=== PATIENT | female | born 1990 | race African-American/Black ===

== ENCOUNTER 2016-06-05 21:55 | Emergency (ER) | payer MEDICAID ==
[~2016-06-05 21:55] MED LIST: CLIN1CAP6 PO; PERC5TAB12 PO
[2016-06-05 22:00] VITALS: BP 123/56; PULSE 86; RESP 16; TEMP 98.1; O2SAT 99
[2016-06-05] MEDS ORDERED: PROM25TA5 PO (23:23)
--- NOTE | 2016-06-05 23:24 | PD ---
HPI Chief Complaint Patient complains of abdominal pain Date Seen: Jun 05, 2016 Travel History International Travel<30 Days: No Contact w/Intl Traveler<30Days: No Known Affected Area: No History of Present Illness HPI This patient is 25-year-old black female at approximately 20 weeks' gestation with no care presents with crampy pains, she denies vaginal bleeding or leakage of fluid. heart tones in the 130s Para: 1 : 2 History Obstetric History Obstetric History One vaginal delivery Social History Alcohol Use: No Tobacco Use: No Substance Abuse: No Allergies-Medications (Allergen,Severity, Reaction): Coded Allergies: *MDRO Multi-Drug Resistant Organism (Verified Adverse Reaction, Unknown, 02/21/16) ESBL+E.Coli (urine)-09/2015 Home Meds Reported Medications Clindamycin 300 Mg [id number] Mg PO Q6H Ref 0 02/20/16 Oxycodone-Acetaminophen (Percocet)5-325 mg Tab1 Tab PO Q6H PRN (PAIN) Ref 0 02/20/16 Review of Systems General / Constitutional: No: Fever, Weight Gain, Chills, Other Eyes: No: Diploplia, Blurred Vision, Visual changes, Pain, Photophobia HENT: No: Headaches, Vertigo, Lightheadedness Cardiovascular: No: Irregular Rhythm, Chest Pain or Discomfort, Palpitations, Tachycardia, Syncope, Varicosities, Edema, Cyanosis Respiratory: No: Cough, Short of Breath, Other Gastrointestinal: Abdominal Pain, No: Nausea, Vomiting, Diarrhea Genitourinary: No: Decreased Urinary Output, Oliguria Musculoskeletal: No: Limited ROM, Weakness, Cramping, Edema, Pain Skin: No Rash, No Itching, No Dryness, No Lumps, No Change in Pigmentation, No Change in Nails, No Alopecia, No Lesions Neurologic: No: Weakness, Dizziness, Syncope, Focal Abnormalities, Coordination Problem, Headache, Slurred Speech, Seizures Psychiatric: No: Depression, Suicidal Ideations, Homicidal Ideation Endocrine: No: Heat Intolerance, Cold Intolerance, Polydipsia, Polyuria, Other Physical Exam Vital Signs Date Time Temp Pulse Resp B/P Pulse Ox O2 Delivery O2 Flow Rate FiO2 06/05/16 22:00 98.1 86 16 123/56 99 Room Air Narrative GENERAL: Well-nourished, well-developed patient. SKIN: Warm and dry. HEAD: Normocephalic and atraumatic. EYES: No scleral icterus. No injection or drainage. ENT: No nasal drainage noted. Mucous membranes pink. Airway patent. NECK: Supple, trachea midline. No JVD. CARDIOVASCULAR: Regular rate and rhythm without murmurs, gallops, or rubs. RESPIRATORY: Breath sounds equal bilaterally. No accessory muscle use. BREASTS: Bilateral exam showed no masses , no retractions, no nipple discharge. ABDOMEN/GI: Abdomen soft, non-tender, bowel sounds present, no rebound, no guarding Gravid to [20-] weeks size Fundal Height: [-at umbilicus] GENITOURINARY: External Genitalia: intact and normal in appearance BUS glands: [-] Cervix: [-] Dilatation: [Closed-] Effacement: [-] Thick Station: [-3] Presentation: [Breech by ultrasound-] Membranes: [intact ] Uterine Contractions: [-none] FHT's: 130s EXTREMITIES: No cyanosis or edema. BACK: Nontender without obvious deformity. No CVA tenderness. NEUROLOGICAL: Awake and alert. Motor and sensory grossly within normal limits. Five out of 5 muscle strength in all muscle groups. Normal speech. Data Data Orders Ob Poc Ultrasound (06/05/16 ) Vital Signs (Adult) .ON ADMISSION (06/05/16 22:48) ^ Labor Status (06/05/16 22:48) Urinalysis - C+S If Indicated (06/05/16 22:48) Ob/Psych Drug Screen, Urine (06/05/16 22:48) Screen (06/05/16 22:50) Labs Ultrasound done at bedside shows in active fetus 19 weeks 3 days,breech, normal cardiac motion noted, normal anatomy scan, posterior placenta, normal amniotic fluid volume. EDC by this ultrasound 10/27/16 MDM Interpretation(s) Patient is a 25-year-old black female with at approximately 20 weeks' gestation with no care tonight ultrasound puts her at 19 weeks 3 days with an EDC of 10/27/16 which should be used to establish her gestational criteria, ultrasound findings documented, laboratory pending at time of dictation but will treat according the urinalysis results ., lab work being drawn just in case because she plans to deliver here Plan The patient to use Tylenol when necessary abdominal pain , prescription for oral Phenergan to use at home for nausea which she says started today, increase oral fluids for hydration,, bedrest heating pad or hot bath for relief of symptoms, patient was also encouraged to begin surgery for care. because she plans to deliver here and would be able to get the second ultrasound in 4 to 6 weeks to see the sex of baby and that is what she is really interested in Diagnosis Diagnosis: Primary Impression: Abdominal pain during in second trimester Additional Impression: No care in current Disposition: 01 DISCHARGE HOME Condition: Stable Scripts Promethazine (Phenergan)25 Mg Tab25 Mg PO Q6H PRN (Nausea/Vomiting) #28 TAB Ref 0 Prov:Nilson Reyes II, MD 06/05/16 Nilson Reyes II, MD Jun 05, 2016 23:24
[2016-06-05 23:40] LABS: BACTERIA, URINE RARE /hpf; BLOOD, URINE NEG (NEG); GLUCOSE,URINE NEG (NEG); KETONE, URINE NEG (NEG); NITRITE,URINE NEG (NEG); RENAL EPITHELIAL CELLS 1 /hpf; SQUAMOUS EPITHELIAL CELL URINE 1 /hpf (0-5); URINE COLOR LIGHT-YELLOW (YELLW/STRAW)
[2016-06-05 23:45] LABS: AMPHETAMINE, URINE NEG (NEG); BARBITURATES, URINE NEG (NEG); COCAINE, URINE NEG (NEG)
[2016-06-05 23:46] LABS: COMMENT (UR) CULTURE INDICATED; CULTURE IF INDICATED CULTURE INDICATED
[2016-06-09 09:08] LABS: ECSTASY (MDMA) UR NEG (NEG); HEROIN (6-ACETYLMORPHINE) UR NEG (NEG); OBMETHADONE UR NEG (NEG); PHENCYCLIDINE URINE NEG (NEG)
[2016-06-09 09:09] LABS: BATH SALTS (MDPV) UR NEG (NEG); K2 SPICE UR NEG (NEG); OXYCODONE (PERCODAN) NEG (NEG)
[2016-09-06] MEDS ORDERED: PREN1CHW7 PO (13:56)
== END 2016-06-06 00:27 | disposition home or self-care (01) ==
LOC: HOBED 21:55
DX: O26.92 Pregnancy related conditions, unspecified, second trimester (principal); R10.9 Unspecified abdominal pain; R82.90 Unspecified abnormal findings in urine; O09.32 Supervision of pregnancy with insufficient antenatal care, second trimester; Z3A.19 19 weeks gestation of pregnancy
CPT/HCPCS: 36415; 76815; 80307; 81001; 86850; 86900; 86901; 87086; 99284; G0481

== ENCOUNTER 2016-09-04 16:57 | Emergency (ER) | payer MEDICAID ==
[~2016-09-04 16:57] MED LIST changes: +PROM25TA5 PO
[2016-09-04] MEDS ORDERED: LACTATED RINGER'S 1000 ML INJ 1,000 ML IV SCH (17:48)
--- NOTE | 2016-09-04 17:56 | PD ---
HPI Chief Complaint lower abdominal pain Date Seen: Sep 04, 2016 Time Seen: 17:50 Travel History International Travel<30 Days: No Contact w/Intl Traveler<30Days: No Known Affected Area: No History of Present Illness HPI Patient is a 25 year old at 32 and 3/7 weeks gestation, AMOS 10/27/16, who presents to the OB ED with lower abdominal pain, vomiting, diarrhea. The abdominal pain comes and goes every 20 minutes. She denies vaginal bleeding. She does endorse leakage of fluid every time she stands since yesterday. She feels baby moving regularly. She denies ZUNIGA/fever/sick contacts/SOB/calf pain/ dizziness/seeing spots. OB care is with [facility] but she has not had labs. History Past Medical History Medical History: Denies Significant Hx Obstetric History Obstetric History G1: 37 weeks, lab 5, vaginal delivery of a 4 lbs. 11 oz. infant Past Surgical History Surgical History: No Previous Surgery Family History Family History: Negative Social History Alcohol Use: No Tobacco Use: No Substance Abuse: No Allergies-Medications (Allergen,Severity, Reaction): Coded Allergies: *MDRO Multi-Drug Resistant Organism (Verified Adverse Reaction, Unknown, 02/21/16) ESBL+E.Coli (urine)-09/2015 Home Meds Active Scripts Promethazine (Phenergan)25 Mg Tab25 Mg PO Q6H PRN (Nausea/Vomiting) #28 TAB Ref 0 Prov:Nilson Reyes II, MD 06/05/16 Reported Medications Clindamycin 300 Mg [id number] Mg PO Q6H Ref 0 02/20/16 Oxycodone-Acetaminophen (Percocet)5-325 mg Tab1 Tab PO Q6H PRN (PAIN) Ref 0 02/20/16 Review of Systems Except as stated in HPI: all other systems reviewed are Neg Physical Exam Narrative GENERAL: Well-nourished, well-developed female who appears nauseous. SKIN: Warm and dry. No rashes. HEAD: Normocephalic and atraumatic. EYES: No scleral icterus. No injection or drainage. ENT: No nasal drainage noted. Mucous membranes pink. Airway patent. NECK: Supple, trachea midline. No JVD. CARDIOVASCULAR: Regular rate and rhythm without murmurs, gallops, or rubs. RESPIRATORY: Breath sounds equal bilaterally. No accessory muscle use. ABDOMEN/GI: Abdomen soft, non-tender, bowel sounds present, no rebound, no guarding Gravid to approximately 35 weeks size GENITOURINARY: External Genitalia: intact and normal in appearance Cervix: closed/thick/high Uterine Contractions: absent FHT's: Category: 1 Baseline: 145 Reactive:y to 165 Variability: mod Decels: absent EXTREMITIES: No cyanosis or edema. BACK: Nontender without obvious deformity. No CVA tenderness. NEUROLOGICAL: Awake and alert. Motor and sensory grossly within normal limits. Five out of 5 muscle strength in all muscle groups. Normal speech. Data Data Vital Signs Reviewed: Yes (T 90 8.2F, P 90, BP 126/72) MDM Medical Record Reviewed: Yes Narrative Course / MDM 25-year-old at 32 and 3/7 weeks who presents with only, diarrhea, abdominal pain. Intrauterine : Category 1 tracing, reassuring Vital signs within normal limits No contractions Cervix closed, thick, high. Amnisure negative Obtain UA, monitor strip If normal will discharge home. Given Zofran 4 mg 1 IV and 1 L LR bolus Given prescription for Phenergan 25 mg q6 hours when necessary for nausea. Counseled to take Imodium as needed for diarrhea. Seen and discussed with Dr. Reyes Diagnosis Diagnosis: Primary Impression: Abdominal pain during in second trimester Additional Impression: Supervision of normal first Disposition: 01 DISCHARGE HOME Condition: Stable Scripts Promethazine (Phenergan)25 Mg [id number] Mg PO Q6H PRN (NAUSEA OR VOMITING) #28 TAB Ref 0 Prov:Josette Rodgers MD R1 09/04/16 Josette Rodgers MD R1 Sep 04, 2016 17:56
[2016-09-04] MEDS ORDERED: ONDANSETRON HCL 4 MG/2 ML VIAL IV ONE (18:00)
[2016-09-04] MEDS ORDERED: PROM25TA10 PO (18:22)
[2016-09-04 19:40] LABS: BLOOD, URINE NEG (NEG); COMMENT (UR) CULTURE INDICATED; CULTURE IF INDICATED CULTURE INDICATED; GLUCOSE,URINE NEG (NEG); KETONE, URINE NEG (NEG); NITRITE,URINE NEG (NEG); SQUAMOUS EPITHELIAL CELL URINE 1 /hpf (0-5); URINE COLOR LIGHT-YELLOW (YELLW/STRAW)
[2016-09-04 19:41] LABS: BACTERIA, URINE FEW /hpf
[2016-09-06] MEDS ORDERED: PREN1CHW7 PO (13:56)
== END 2016-09-04 18:50 | disposition home or self-care (01) ==
LOC: HOBED 16:57
DX: O26.93 Pregnancy related conditions, unspecified, third trimester (principal); R10.30 Lower abdominal pain, unspecified; R82.90 Unspecified abnormal findings in urine; Z3A.32 32 weeks gestation of pregnancy
CPT/HCPCS: 81001; 84112; 87086; 99284

== ENCOUNTER 2016-09-27 22:34 | Emergency (ER) | payer MEDICAID ==
[~2016-09-27 22:34] MED LIST changes: -CLIN1CAP6 PO; -PERC5TAB12 PO; +PREN1CHW7 PO; +PROM25TA10 PO; -PROM25TA5 PO
[2016-09-27] MEDS ORDERED: DIFL150T PO (23:27)
--- NOTE | 2016-09-27 23:28 | PD ---
HPI Chief Complaint water broke Date Seen: Sep 27, 2016 Time Seen: 23:00 Travel History International Travel<30 Days: No Contact w/Intl Traveler<30Days: No Known Affected Area: No History of Present Illness HPI Pt is a 26 y/o with IUP at 35.5 wks by stated AMOS who presents with c/o fluid leaking from vagina since this morning and feeling contractions past few hours. Pt reports she had intercourse last night. denies vag bleeding. +FM Para: 1 : 2 History Past Medical History Medical History: Denies Significant Hx Obstetric History Obstetric History 2013 FTSVD at 38 wks, IUGR BW 4# Past Surgical History Surgical History: No Previous Surgery Family History Family History: Negative Social History Alcohol Use: No Tobacco Use: No Substance Abuse: No Allergies-Medications (Allergen,Severity, Reaction): Coded Allergies: *MDRO Multi-Drug Resistant Organism (Verified Adverse Reaction, Unknown, ) ESBL+E.Coli (urine)-09/2015 Home Meds Active Scripts Vit W/ Ferric Phospha (Vitafol Gummies 3.33-0.333-34.8 mg)1 Chw Chw3 Tab PO DAILY #90 BOTTLE Ref 11 Prov:Danielle Domínguez 09/06/16 Promethazine (Phenergan)25 Mg [id number] Mg PO Q6H PRN (NAUSEA OR VOMITING) #28 TAB Ref 0 Prov:Josette Rodgers MD R1 09/04/16 Review of Systems General / Constitutional: Weight Gain Eyes: No: Diploplia, Blurred Vision, Visual changes, Pain, Photophobia, Other HENT: No: Headaches, Vertigo, Dental Difficulties, Lightheadedness, Other Cardiovascular: No: Irregular Rhythm, Chest Pain or Discomfort, Palpitations, Tachycardia, Syncope, Varicosities, Edema, Cyanosis, Other Respiratory: No: Cough, Short of Breath, Wheezing, Other Gastrointestinal: Abdominal Pain Genitourinary: Pelvic Pain, No: Urgency, Frequency, Dysuria, Nocturia, Hematuria, Decreased Urinary Output, Oliguria, Hesitancy, Dribbling, Incontinence, Dyspareunia, Discharge, Menorrhagia, Vaginal Bleeding, Other Musculoskeletal: No: Limited ROM, Weakness, Cramping, Edema, Pain, Other Skin: No Rash, No Itching, No Dryness, No Lumps, No Change in Pigmentation, No Change in Nails, No Alopecia, No Lesions, No Breast Lumps, No Breast Tenderness , No Breast Swelling, No Other Neurologic: No: Weakness, Dizziness, Syncope, Focal Abnormalities, Coordination Problem, Headache, Slurred Speech, Seizures, Other Psychiatric: No: Anxiety, Depression, Suicidal Ideations, Disorder of Thought, Mood Disorder, Substance Abuse, Homicidal Ideation, Other Endocrine: No: Heat Intolerance, Cold Intolerance, Polydipsia, Polyuria, Other Hematologic/Lymphatic: No Easy Bruising, No Lymph Node Enlargement, No Other Physical Exam 102/76, 91, 16, 98.2 Narrative GENERAL: Well-nourished, well-developed patient. SKIN: Warm and dry. HEAD: Normocephalic and atraumatic. EYES: No scleral icterus. No injection or drainage. ENT: No nasal drainage noted. Mucous membranes pink. Airway patent. NECK: Supple, trachea midline. No JVD. CARDIOVASCULAR: Regular rate and rhythm without murmurs, gallops, or rubs. RESPIRATORY: Breath sounds equal bilaterally. No accessory muscle use. ABDOMEN/GI: Abdomen soft, non-tender, bowel sounds present, no rebound, no guarding Gravid GENITOURINARY: External Genitalia: intact and normal in appearance spec exam: neg pool, neg valsalva, small amount of watery/clumpy discharge c/w yeast BUS glands: [wnl] Cervix: posterior Dilatation: 1 Effacement: long Station: high Presentation: - Membranes: intact, amnisure test negative Uterine Contractions: neg FHT's: Category: 1 Baseline: 130 Reactive: yes Variability: mod Decels: none EXTREMITIES: No cyanosis or edema. BACK: Nontender without obvious deformity. No CVA tenderness. NEUROLOGICAL: Awake and alert. Motor and sensory grossly within normal limits. Five out of 5 muscle strength in all muscle groups. Normal speech. Data Data Vital Signs Reviewed: Yes Orders Vital Signs (Adult) .ON ADMISSION (09/27/16 23:17) ^ Labor Status (09/27/16 23:17) MDM Medical Record Reviewed: Yes Narrative Course / MDM 26 y/o with IUP at 35.5 wks c/o leakage from vagina no evidence of SROM or PTL watery discharge c/w yeast--will rx diflucan Diagnosis Diagnosis: Primary Impression: Yeast vaginitis Additional Impression: 35 weeks gestation of Disposition: 01 DISCHARGE HOME Condition: Stable Scripts Fluconazole (Diflucan)150 Mg [id number] Mg PO ONCE #1 TAB Ref 0 Prov:Kaykay Julien MD 09/27/16 Patient Instructions: General Instructions Departure Forms: Tests/Procedures Kaykay Julien MD Sep 27, 2016 23:28
== END 2016-09-27 23:41 | disposition home or self-care (01) ==
LOC: HOBED 22:34
DX: O98.813 Other maternal infectious and parasitic diseases complicating pregnancy, third trimester (principal); B37.3 Candidiasis of vulva and vagina; Z3A.35 35 weeks gestation of pregnancy
CPT/HCPCS: 84112; 99283

== ENCOUNTER 2016-09-30 18:38 | Emergency (ER) | payer MEDICAID ==
[~2016-09-30 18:38] MED LIST changes: +DIFL150T PO
--- NOTE | 2016-09-30 19:18 | PD ---
HPI Chief Complaint leaking fluid 36 weeks Date Seen: Sep 30, 2016 Travel History International Travel<30 Days: No Contact w/Intl Traveler<30Days: No Known Affected Area: No History of Present Illness HPI Pt is a 26 yo at 36 weeks and 4 days. Presents with c/o leaking vaginal fluid. Active movements. No vaginal bleeding. C/o longstanding back pain. Para: 1 : 2 Last Menstrual Period: Sep 30, 2016 History Past Medical History Narrative Medical Nil significant Obstetric History Obstetric History Term vaginal delivery x 1, uncomplicated Past Surgical History Narrative Surgical benign breast cystectomy Social History Alcohol Use: No Tobacco Use: No Substance Abuse: No Allergies-Medications (Allergen,Severity, Reaction): Coded Allergies: *MDRO Multi-Drug Resistant Organism (Verified Adverse Reaction, Unknown, ) ESBL+E.Coli (urine)-09/2015 Home Meds Active Scripts Fluconazole (Diflucan)150 Mg [id number] Mg PO ONCE #1 TAB Ref 0 Prov:Kaykay Julien MD 09/27/16 Vit W/ Ferric Phospha (Vitafol Gummies 3.33-0.333-34.8 mg)1 Chw Chw3 Tab PO DAILY #90 BOTTLE Ref 11 Prov:Danielle Domínguez 09/06/16 Promethazine (Phenergan)25 Mg [id number] Mg PO Q6H PRN (NAUSEA OR VOMITING) #28 TAB Ref 0 Prov:Josette Rodgers MD R1 09/04/16 Review of Systems Except as stated in HPI: all other systems reviewed are Neg Physical Exam Narrative GENERAL: Well-nourished, well-developed patient. SKIN: Warm and dry. HEAD: Normocephalic and atraumatic. EYES: No scleral icterus. No injection or drainage. ENT: No nasal drainage noted. Mucous membranes pink. Airway patent. NECK: Supple, trachea midline. No JVD. CARDIOVASCULAR: Regular rate and rhythm without murmurs, gallops, or rubs. RESPIRATORY: Breath sounds equal bilaterally. No accessory muscle use. BREASTS: Bilateral exam showed no masses , no retractions, no nipple discharge. ABDOMEN/GI: Abdomen soft, non-tender, bowel sounds present, no rebound, no guarding Gravid to [36-] weeks size Fundal Height: [-] GENITOURINARY: External Genitalia: intact and normal in appearance BUS glands: [-] Cervix: [soft] Dilatation: [1-2cm-] Effacement: [50%] Station: [-] Presentation: [-] Membranes: [intact or ruptured] Uterine Contractions: [-] FHT's: Category: [-] Baseline: [-] Reactive: [-] Variability: [-] Decels: [-] EXTREMITIES: No cyanosis or edema. BACK: Nontender without obvious deformity. No CVA tenderness. NEUROLOGICAL: Awake and alert. Motor and sensory grossly within normal limits. Five out of 5 muscle strength in all muscle groups. Normal speech. Data Data Vital Signs Reviewed: Yes MDM Plan Cervical exam unchanged from last visit Amniosure NEGATIVE Discussed with patient. Has office appointment 10-03-2016 Diagnosis Diagnosis: Primary Impression: False labor Additional Impression: Encounter for suspected PROM, with rupture of membranes not found Disposition: 01 DISCHARGE HOME Condition: Good Woody Love MD Sep 30, 2016 19:18
== END 2016-09-30 19:24 | disposition home or self-care (01) ==
LOC: HOBED 18:38
DX: O47.03 False labor before 37 completed weeks of gestation, third trimester (principal); Z3A.36 36 weeks gestation of pregnancy
CPT/HCPCS: 59025; 84112

== ENCOUNTER 2016-10-10 22:17 | Emergency (ER) | payer MEDICAID ==
--- NOTE | 2016-10-10 23:51 | PD ---
HPI Chief Complaint vaginal pressure Date Seen: Oct 10, 2016 Time Seen: 23:10 Travel History International Travel<30 Days: No Contact w/Intl Traveler<30Days: No Known Affected Area: No History of Present Illness HPI 26y/o , IUP at 37.3 PNC uncomplicated per patient report Patient presents c/o onset of vaginal pressure this evening. She reports it feels like the "baby is moving it's head in my vagina." There are no aggravating or alleviating factors and no attempted treatements. She denies any LOF or VB. She denies any painful ctx or cramping. She reports good FM. Para: 1 : 2 Miscarriage: 0 : 0 History Past Medical History Narrative Medical Denies Past Surgical History Narrative Surgical R breast mass resection Family History Narrative Family History DM Social History Alcohol Use: No Tobacco Use: No Substance Abuse: No Allergies-Medications (Allergen,Severity, Reaction): Coded Allergies: *MDRO Multi-Drug Resistant Organism (Verified Adverse Reaction, Unknown, ) ESBL+E.Coli (urine)-09/2015 Home Meds Active Scripts Fluconazole (Diflucan)150 Mg [id number] Mg PO ONCE #1 TAB Ref 0 Prov:Kaykay Julien MD 09/27/16 Vit W/ Ferric Phospha (Vitafol Gummies 3.33-0.333-34.8 mg)1 Chw Chw3 Tab PO DAILY #90 BOTTLE Ref 11 Prov:Danielle Domínguez 09/06/16 Promethazine (Phenergan)25 Mg [id number] Mg PO Q6H PRN (NAUSEA OR VOMITING) #28 TAB Ref 0 Prov:Josette Rodgers MD R1 09/04/16 Review of Systems Except as stated in HPI: all other systems reviewed are Neg Physical Exam Narrative GENERAL: Well-nourished, well-developed patient. SKIN: Warm and dry. HEAD: Normocephalic and atraumatic. EYES: No scleral icterus. No injection or drainage. ENT: No nasal drainage noted. Mucous membranes pink. Airway patent. NECK: Supple, trachea midline. No JVD. CARDIOVASCULAR: Regular rate and rhythm without murmurs, gallops, or rubs. RESPIRATORY: Breath sounds equal bilaterally. No accessory muscle use. ABDOMEN/GI: Abdomen soft, non-tender, bowel sounds present, no rebound, no guarding Gravid GENITOURINARY: External Genitalia: intact and normal in appearance BUS glands: [normal] Cervix: [no cervical/vaginal masses] Dilatation: [1-2] Effacement: [20] Station: [high] Membranes: [intact] Uterine Contractions: [n] FHT's: Category: [1] Baseline: [130s] Reactive: [y] Variability: [moderate, good accels] Decels: [N] EXTREMITIES: No cyanosis or edema. BACK: Nontender without obvious deformity. No CVA tenderness. NEUROLOGICAL: Awake and alert. Motor and sensory grossly within normal limits. Five out of 5 muscle strength in all muscle groups. Normal speech. MS grossly normal ROM, gait, muscle strength Psych grossly normal memory, affect Data Data Vital Signs Reviewed: Yes MDM Plan A/P: 26y/o 1. IUP at 37w 2. Vaginal pressure: no evidence of active labor, discussed normal symptoms of including vaginal pressure. Strict labor precautions. 3. wellbeing: reassuring testing with reactive NSt, FHR reassuring and appropriate for gestational age. FKC daily. 4. F/U with primary OB in 2-3d or sooner if needed 5. h/o R breast mass: no issues today. Diagnosis Diagnosis: Primary Impression: False labor Additional Impression: 37 weeks gestation of Disposition: 01 DISCHARGE HOME Condition: Good Patient Instructions: General Instructions, Early Labor Signs (ED), Movement (ED) Departure Forms: Tests/Procedures Danielle Segundo MD Oct 10, 2016 23:51
== END 2016-10-10 23:30 | disposition home or self-care (01) ==
LOC: HOBED 22:17
DX: O47.1 False labor at or after 37 completed weeks of gestation (principal); Z3A.37 37 weeks gestation of pregnancy
CPT/HCPCS: 59025

== ENCOUNTER 2016-10-26 13:02 | Emergency (ER) | payer MEDICAID ==
[~2016-10-26] VITALS: Ht 165.1 cm; Wt 79.4 kg
--- NOTE | 2016-10-26 13:55 | PD ---
HPI Chief Complaint Abdominal pain Date Seen: Oct 26, 2016 Time Seen: 13:45 Travel History International Travel<30 Days: No Contact w/Intl Traveler<30Days: No Known Affected Area: No History of Present Illness HPI Patient is a 26-year-old at 39 weeks and 6 days who presents with a couple days of low abdominal pain. Patient reports that she has had progressively worsening pressure and crampy lower abdominal pain and low back pain the last couple days. She denies any big gush of clear fluid but does report a gradual leak of fluid. She denies any vaginal bleeding. She reports movement. [facility] Para: 1 : 2 History Past Medical History Medical History: Denies Significant Hx Obstetric History Obstetric History Patient is a . She reports that her current has been uncomplicated. Her last ultrasound about 3 weeks ago showed a baby greater than 5 pounds. She reports that her first labor was about 2 weeks early, full-term, uncomplicated, 4 lbs. 11 oz. baby girl, who is currently 2 years old. Past Surgical History Narrative Surgical Right breast lumpectomy Family History Narrative Family History Patient's mother has type 2 diabetes, rheumatoid arthritis, hypertension. Social History Narrative Social History Patient lives at home with her mother and her baby girl. Alcohol Use: No Tobacco Use: No Substance Abuse: No Allergies-Medications (Allergen,Severity, Reaction): Coded Allergies: No Known Allergies (Unverified , 10/26/16) Home Meds Active Scripts Vit W/ Ferric Phospha (Vitafol Gummies 3.33-0.333-34.8 mg)1 Chw Chw3 Tab PO DAILY #90 BOTTLE Ref 11 Prov:Danielle Domínguez 09/06/16 Discontinued Scripts Fluconazole (Diflucan)150 Mg [id number] Mg PO ONCE #1 TAB Ref 0 Prov:Kaykay Julien MD 09/27/16 Promethazine (Phenergan)25 Mg Iepkej93 Mg PO Q6H PRN (NAUSEA OR VOMITING) #28 TAB Ref 0 Prov:Josette Rodgers MD R1 09/04/16 Review of Systems General / Constitutional: Other, No: Fever, Chills Cardiovascular: No: Chest Pain or Discomfort Respiratory: No: Short of Breath Gastrointestinal: Abdominal Pain Genitourinary: No: Dysuria Musculoskeletal: Cramping, Pain Physical Exam 125/78, 91, 14, 98.7, pain 6 out of 10 Narrative GENERAL: Well-nourished, well-developed patient. SKIN: Warm and dry. HEAD: Normocephalic and atraumatic. EYES: No scleral icterus. No injection or drainage. ENT: No nasal drainage noted. Mucous membranes pink. Airway patent. NECK: Supple, trachea midline. No JVD. CARDIOVASCULAR: Regular rate and rhythm without murmurs, gallops, or rubs. RESPIRATORY: Breath sounds equal bilaterally. No accessory muscle use. BREASTS: Bilateral exam showed no masses , no retractions, no nipple discharge. ABDOMEN/GI: Abdomen soft, non-tender, bowel sounds present, no rebound, no guarding Gravid to 39-40 weeks size GENITOURINARY: External Genitalia: intact and normal in appearance Cervix: posterior, firm Dilatation: 2cm Effacement: thick Station: -3 Presentation: vertex Membranes: Intact Uterine Contractions: none FHT's: Category: Cat I Baseline: 140 Reactive: reactive Variability: moderate Decels: none EXTREMITIES: No cyanosis or edema. BACK: Nontender without obvious deformity. No CVA tenderness. NEUROLOGICAL: Awake and alert. Motor and sensory grossly within normal limits. Five out of 5 muscle strength in all muscle groups. Normal speech. Data Data Vital Signs Reviewed: Yes MDM Plan Patient is a 26-year-old at 39 weeks and 6 days who presents with a couple days of low abdominal pain. Last cervical exam was 2 cm dilated. Today cervical exam was again 2 cm dilated. No significant cervical change. 1. abdominal pain - patient not nara and not having any cervical change. Most likely diagnosis is false labor. Monitor vital signs Monitor heart rate Monitor tocometry Encourage by mouth hydration Patient seen and discussed with Dr. Reyes. Diagnosis Diagnosis: Primary Impression: False labor Additional Impressions: 39 weeks gestation of with 39 completed weeks gestation Disposition: 01 DISCHARGE HOME Condition: Good Johann Jarrell MD R1 Oct 26, 2016 13:55
== END 2016-10-26 14:01 | disposition home or self-care (01) ==
LOC: HOBED 13:02
DX: O47.1 False labor at or after 37 completed weeks of gestation (principal); R10.30 Lower abdominal pain, unspecified; M54.5 Low back pain; Z79.899 Other long term (current) drug therapy; Z3A.39 39 weeks gestation of pregnancy
CPT/HCPCS: 59025; 84112

== ENCOUNTER 2016-10-28 16:47 | Emergency (ER) | payer MEDICAID ==
[~2016-10-28] VITALS: Ht 165.1 cm; Wt 79.4 kg
[~2016-10-28 16:47] MED LIST changes: -DIFL150T PO; -PROM25TA10 PO
--- NOTE | 2016-10-28 18:28 | PD ---
HPI Chief Complaint Back pain Date Seen: Oct 28, 2016 Travel History International Travel<30 Days: No Contact w/Intl Traveler<30Days: No Known Affected Area: No History of Present Illness HPI Ms. Manley is a 26-year-old at 40/1 who presents with a low back pain. Patient reports that she has had the pain over the last few days and was consistent overnight. She source the pain at a 8-9/10 as sharp in nature. The pain does not radiate around to her abdomen. She denies any vaginal bleeding, vaginal discharge, or loss of fluid. She reports appropriate movement. She gets her care at [facility], but has not been evaluated in over a month. She is currently requesting a cervical check stating she "hopes to be in labor and is sick of being ." Para: 2 : 1 History Past Medical History Medical History: Denies Significant Hx Obstetric History Obstetric History Patient is a . Current uncomplicated. Ultrasound approximately 4 weeks ago showed a baby greater than 5 pounds without abnormalities. First was complicated by oligohydramnios and was thereforeto 38 weeks of . Delivery was uncomplicated, 4 lbs. 11 oz. baby girl, who is currently 2 years old. Past Surgical History Narrative Surgical Right breast lumpectomy Family History Narrative Family History Patient's mother has type 2 diabetes, rheumatoid arthritis, hypertension. Social History Narrative Social History Patient lives at home with her mother and daughter. Alcohol Use: No Tobacco Use: No Substance Abuse: No Allergies-Medications (Allergen,Severity, Reaction): Coded Allergies: No Known Allergies (Unverified , 10/26/16) Home Meds Active Scripts Vit W/ Ferric Phospha (Vitafol Gummies 3.33-0.333-34.8 mg)1 Chw Chw3 Tab PO DAILY #90 BOTTLE Ref 11 Prov:Danielle Domínguez 09/06/16 Discontinued Scripts Fluconazole (Diflucan)150 Mg [id number] Mg PO ONCE #1 TAB Ref 0 Prov:Kaykay Julien MD 09/27/16 Promethazine (Phenergan)25 Mg [id number] Mg PO Q6H PRN (NAUSEA OR VOMITING) #28 TAB Ref 0 Prov:Josette Rodgers MD R2 09/04/16 Review of Systems General / Constitutional: No: Fever Eyes: No: Blurred Vision HENT: No: Headaches Cardiovascular: No: Chest Pain or Discomfort Respiratory: No: Cough, Short of Breath Gastrointestinal: No: Nausea, Vomiting, Diarrhea Genitourinary: No: Dysuria, Discharge, Vaginal Bleeding Musculoskeletal: No: Weakness Skin: No Rash Neurologic: No: Weakness Psychiatric: No: Mood Disorder Hematologic/Lymphatic: No Lymph Node Enlargement Physical Exam Narrative GENERAL: Well-nourished, well-developed patient. SKIN: Warm and dry. HEAD: Normocephalic and atraumatic. EYES: No scleral icterus. No injection or drainage. ENT: No nasal drainage noted. Mucous membranes pink. Airway patent. NECK: Supple, trachea midline. No JVD. CARDIOVASCULAR: Regular rate and rhythm without murmurs, gallops, or rubs. RESPIRATORY: Breath sounds equal bilaterally. No accessory muscle use. ABDOMEN/GI: Abdomen soft, non-tender, bowel sounds present, no rebound, no guarding Gravid to 40 weeks size GENITOURINARY: External Genitalia: intact and normal in appearance Cervix: Posterior Dilatation: 1-2 cm Effacement: 60% Station: -3 Presentation: Vertex Membranes: Intact FHT's: Category: 1 Baseline: 140s Reactive: Positive Variability: Moderate Decels: None EXTREMITIES: No cyanosis or edema. BACK: Nontender without obvious deformity. No CVA tenderness. NEUROLOGICAL: Awake and alert. Motor and sensory grossly within normal limits. Five out of 5 muscle strength in all muscle groups. Normal speech. Data Data Vital Signs Reviewed: Yes [facility] Medical Record Reviewed: Yes Plan 1. IOB at 40 weeks Exam reassuring Continue routine care Vital signs within normal limits Encourage by mouth hydration 2. Low back pain Encourage Tylenol for pain control Encourage hydration Diagnosis Diagnosis: Primary Impression: False labor Additional Impression: Low back pain Disposition: 01 DISCHARGE HOME Condition: Good Additional Instructions: Encourage patient to follow-up with [facility] in 2-3 days. Po Branch MD R2 Oct 28, 2016 18:28
== END 2016-10-28 18:37 | disposition home or self-care (01) ==
LOC: HOBED 16:47
DX: O47.1 False labor at or after 37 completed weeks of gestation (principal); M54.5 Low back pain; O41.03X0 Oligohydramnios, third trimester, not applicable or unspecified; Z3A.40 40 weeks gestation of pregnancy
CPT/HCPCS: 99283

== ENCOUNTER 2016-10-30 15:43 | Emergency (ER) | payer MEDICAID ==
--- NOTE | 2016-10-30 18:07 | PD ---
HPI Chief Complaint contractions Date Seen: Oct 30, 2016 Travel History International Travel<30 Days: No Contact w/Intl Traveler<30Days: No Known Affected Area: No History of Present Illness HPI This is a 26y/o at 40w3d who presents to the [facility] with reports of contractions q 4-5 minutes apart. She denies vaginal bleeding or leakage of fluid with reports of active movements. care complicated by: 1. initial care with [facility], [facility], not all labs done Para: 1 : 2 History Past Medical History Medical History: Denies Significant Hx Past Surgical History Surgical History: No Previous Surgery Family History Family History: Negative Social History Alcohol Use: No Tobacco Use: No Substance Abuse: No Allergies-Medications (Allergen,Severity, Reaction): Coded Allergies: No Known Allergies (Unverified , 10/30/16) Home Meds Active Scripts Vit W/ Ferric Phospha (Vitafol Gummies 3.33-0.333-34.8 mg)1 Chw Chw3 Tab PO DAILY #90 BOTTLE Ref 11 Prov:Danielle Domínguez 09/06/16 Discontinued Scripts Fluconazole (Diflucan)150 Mg [id number] Mg PO ONCE #1 TAB Ref 0 Prov:Kaykay Julien MD 09/27/16 Promethazine (Phenergan)25 Mg Iqakge95 Mg PO Q6H PRN (NAUSEA OR VOMITING) #28 TAB Ref 0 Prov:Josette Rodgers MD R2 09/04/16 Review of Systems Except as stated in HPI: all other systems reviewed are Neg Physical Exam Narrative GENERAL: Well-nourished, well-developed patient. SKIN: Warm and dry. HEAD: Normocephalic and atraumatic. EYES: No scleral icterus. No injection or drainage. ENT: No nasal drainage noted. Mucous membranes pink. Airway patent. NECK: Supple, trachea midline. No JVD. CARDIOVASCULAR: Regular rate and rhythm without murmurs, gallops, or rubs. RESPIRATORY: Breath sounds equal bilaterally. No accessory muscle use. BREASTS: Bilateral exam showed no masses , no retractions, no nipple discharge. ABDOMEN/GI: Abdomen soft, non-tender, bowel sounds present, no rebound, no guarding Gravid to 39 weeks size GENITOURINARY: External Genitalia: intact and normal in appearance Cervix: 2-3/50/-3 Uterine Contractions: irregular FHT's: Category: 1 Bedside u/s: Siup, vertex EXTREMITIES: No cyanosis or edema. BACK: Nontender without obvious deformity. No CVA tenderness. NEUROLOGICAL: Awake and alert. Motor and sensory grossly within normal limits. Five out of 5 muscle strength in all muscle groups. Normal speech. Data Data Orders Vital Signs (Adult) .ON ADMISSION (10/30/16 17:37) ^ Labor Status (10/30/16 17:37) Urinalysis - C+S If Indicated (10/30/16 17:37) Rubella Immune Status (10/30/16 17:37) Rapid Plasma Regin (Rpr) W Ttr (10/30/16 17:37) Varicella Zoster Ab Igg (10/30/16 17:37) Sickle Cell Screen (10/30/16 17:37) Thyroid Stimulating Hormone (10/30/16 17:37) MDM Medical Record Reviewed: Yes Narrative Course / MDM 26y/o at 40w3d who presented for evaluation of labor. Plan No evidence of labor. f/u on Sunday for post sanaz induction if not delivered prior to that Diagnosis Diagnosis: Primary Impression: False labor Additional Impression: with 39 completed weeks gestation Disposition: 01 DISCHARGE HOME Condition: Good Patient Instructions: Early Labor Signs (ED) Additional Instructions: F/u on Sunday at 6am for induction of labor if not delivered prior to that. Beth Garcia MD Oct 30, 2016 18:07
[2016-10-30 18:23] LABS: BLOOD, URINE NEG (NEG); COMMENT (UR) CULTURE INDICATED; CULTURE IF INDICATED CULTURE INDICATED; GLUCOSE,URINE NEG (NEG); KETONE, URINE NEG (NEG); NITRITE,URINE NEG (NEG); PH, URINE 6.5 (5.0-8.5); URINE COLOR YELLOW (YELLW/STRAW)
[2016-10-30 21:24] LABS: RUBELLA IGG ANTIBODY 44.9 IU/mL (10.0-500.0); RUBELLA STATUS IMMUNE (IMMUNE)
[2016-10-31 11:11] LABS: RAPID PLASMA REAGIN SCREEN NON-REACTIVE (NON-REACTVE)
[2016-11-04 19:52] LABS: ABN HGB 1 REF ND (()); ABN HGB 2 REF ND (()); HCT REFERENCE 34.9 % (35.0-45.0); HGB A REFERENCE 57.6 % (()); HGB A2 REF 3.6 % (1.8-3.5); HGB C REFERENCE ND (()); HGB E REF ND (()); HGB FETAL REF 0 % (LESS THAN 2.0); HGB REFERENCE 10.9 g/dL (11.7-15.5); HGB S REFERENCE 38.8 % (0); MCV REFERENCE 92.5 fL (80.0-100.0); RDW REFERENCE 14.1 % (11.0-15.0); RED BLOOD COUNT REF 3.8 (3.80-5.10)
== END 2016-10-30 18:15 | disposition home or self-care (01) ==
LOC: HOBED 15:43
DX: O47.1 False labor at or after 37 completed weeks of gestation (principal); A49.8 Other bacterial infections of unspecified site; Z3A.40 40 weeks gestation of pregnancy
CPT/HCPCS: 36415; 59025; 81001; 83021; 84443; 85014; 85018; 85041; 85660; 86592; 86762; 86787; 87086

== ENCOUNTER 2016-11-02 17:17 | Inpatient (IN) | payer MEDICAID ==
[2016-11-02] VITALS (42 sets, daily range): BP systolic 81–153; BP diastolic 52–103; PULSE 76–162; RESP 16–20; TEMP 97.7–98.3; O2SAT 100
[~2016-11-02] VITALS: Ht 165.1 cm; Wt 83.9 kg
[~2016-11-02 17:17] MED LIST changes: +DIFL150T PO; +DIPHTH/TETANUS/ACEL PERTUSSIS (BOOSTER) 0.5 ML VIAL/PFS IM ONE; +MEASLES, MUMPS, RUBELLA VACCINE 0.5 ML VIAL SQ ONE; +PROM25TA10 PO
[2016-11-02] MEDS ORDERED: LACTATED RINGER'S 1000 ML INJ 1,000 ML IV PRN (17:53)
[2016-11-02] MEDS ORDERED: LACTATED RINGER'S 1000 ML INJ 1,000 ML IV SCH (17:53)
--- NOTE | 2016-11-02 17:53 | HHI.HP ---
HPI Chief Complaint Contraction pain Date Seen: Nov 02, 2016 Travel History International Travel<30 Days: No Contact w/Intl Traveler<30Days: No Known Affected Area: No History of Present Illness HPI Patient is 26-year-old black female at 41 weeks tomorrow presents planning contractions. Tracing is reactive contractions noted every 3-4 minutes. [facility] Para: 1 : 2 Last Menstrual Period: Nov 02, 2016 History Social History Alcohol Use: No Tobacco Use: No Substance Abuse: No Allergies-Medications (Allergen,Severity, Reaction): Coded Allergies: No Known Allergies (Unverified , 10/30/16) Home Meds Active Scripts Vit W/ Ferric Phospha (Vitafol Gummies 3.33-0.333-34.8 mg)1 Chw Chw3 Tab PO DAILY #90 BOTTLE Ref 11 Prov:Danielle Domínguez 09/06/16 Discontinued Scripts Fluconazole (Diflucan)150 Mg [id number] Mg PO ONCE #1 TAB Ref 0 Prov:Kaykay Julien MD 09/27/16 Promethazine (Phenergan)25 Mg Ielrhb50 Mg PO Q6H PRN (NAUSEA OR VOMITING) #28 TAB Ref 0 Prov:Josette Rodgers MD R2 09/04/16 Review of Systems General / Constitutional: No: Fever, Weight Gain, Chills, Other Eyes: No: Diploplia, Blurred Vision, Visual changes, Pain, Photophobia HENT: No: Headaches, Vertigo, Lightheadedness Cardiovascular: No: Irregular Rhythm, Chest Pain or Discomfort, Palpitations, Tachycardia, Syncope, Varicosities, Edema, Cyanosis Respiratory: No: Cough, Short of Breath, Other Gastrointestinal: Abdominal Pain, No: Nausea, Vomiting, Diarrhea Genitourinary: No: Decreased Urinary Output, Oliguria Musculoskeletal: No: Limited ROM, Weakness, Cramping, Edema, Pain Skin: No Rash, No Itching, No Dryness, No Lumps, No Change in Pigmentation, No Change in Nails, No Alopecia, No Lesions Neurologic: No: Weakness, Dizziness, Syncope, Focal Abnormalities, Coordination Problem, Headache, Slurred Speech, Seizures Psychiatric: No: Depression, Suicidal Ideations, Homicidal Ideation Endocrine: No: Heat Intolerance, Cold Intolerance, Polydipsia, Polyuria, Other Physical Exam Narrative GENERAL: Well-nourished, well-developed patient. SKIN: Warm and dry. HEAD: Normocephalic and atraumatic. EYES: No scleral icterus. No injection or drainage. ENT: No nasal drainage noted. Mucous membranes pink. Airway patent. NECK: Supple, trachea midline. No JVD. CARDIOVASCULAR: Regular rate and rhythm without murmurs, gallops, or rubs. RESPIRATORY: Breath sounds equal bilaterally. No accessory muscle use. BREASTS: Bilateral exam showed no masses , no retractions, no nipple discharge. ABDOMEN/GI: Abdomen soft, non-tender, bowel sounds present, no rebound, no guarding Gravid to [-40] weeks size Fundal Height: [40-] GENITOURINARY: External Genitalia: intact and normal in appearance BUS glands: [-] Cervix: [-] Dilatation: [-4-5] Effacement: [90-] Station: [-2] Presentation: [vtx-] Membranes: [intact bulging] Uterine Contractions: [-q3 min] FHT's: Category: [-1] Baseline: [133-] Reactive: [-yes] Variability: [mod-] Decels: [-none] EXTREMITIES: No cyanosis or edema. BACK: Nontender without obvious deformity. No CVA tenderness. NEUROLOGICAL: Awake and alert. Motor and sensory grossly within normal limits. Five out of 5 muscle strength in all muscle groups. Normal speech. Data Data Orders Ob (2e) Additional Admit Info (11/02/16 17:41) Assessment/Plan Assessment and Plan Patient 26-year-old black female at 41 weeks tomorrow presents in active labor. [facility] and is been here many times for false labor. She is in labor now cervix is 4--5 cm 90% -2 with bulging bag, heart rate tracing is reactive contractions seen. Impression --active labor at term Plans admission for labor management augmentation and anticipate vaginal delivery Nilson Reyes II, MD Nov 02, 2016 17:53
[2016-11-02] MEDS ORDERED: SODIUM CHLORID 0.9% 500 ML INJ 500 ML IV PRN (18:00)
[2016-11-02] MEDS ORDERED: CITRIC ACID-SODIUM CITRATE LIQ 30 ML UDC PO SCH (18:00)
[2016-11-02] MEDS ORDERED: LIDOCAINE HCL 1% 50 ML VIAL I-DERMAL PRN (18:00)
[2016-11-02] MEDS ORDERED: OXYTOCIN 30 UNITS-500ML PREMIX 500 ML IV ONE (18:00)
[2016-11-02] MEDS ORDERED: LIDOCAINE HCL 1% 50 ML VIAL INFIL PRN (18:00)
[2016-11-02] MEDS ORDERED: MINERAL OIL 10 ML VIAL TOPICAL PRN (18:00)
[2016-11-02] MEDS ORDERED: SODIUM CHLOR 0.9% 1000 ML INJ 1,000 ML IV PRN (18:13)
[2016-11-02] MEDS ORDERED: fentaNYL 2MCG-BUPIV 0.125% INJ 100 ML ONE (18:28)
[2016-11-02 18:34] LABS: AUTOMATED NEUTROPHIL # 7.6 TH/MM3 (1.8-7.7); BASOPHIL # 0.1 TH/MM3 (0-0.2); BASOPHIL % 0.6 % (0.0-2.0); EOSINOPHIL # 0.1 TH/MM3 (0-0.4); EOSINOPHIL % 0.8 % (0.0-4.0); HEMATOCRIT 35.2 % (35.0-46.0); LYMPH % 19.1 % (9.0-44.0); LYMPHOCYTE # 2.1 TH/MM3 (1.0-4.8); MEAN CELL VOLUME 88.2 FL (80.0-100.0); MEAN CORPUSCULAR HEMOGLOBIN 29.2 PG (27.0-34.0); MEAN CORPUSCULAR HGB CONC 33.1 % (32.0-36.0); MONO % 10.6 % (0.0-8.0); NEUT % 68.9 % (16.0-70.0); PLATELET COUNT 194 TH/MM3 (150-450)
[2016-11-02 18:40] LABS: HEMO FLAGS AUTO DIFF
[2016-11-02] MEDS ORDERED: fentaNYL 2MCG-BUPIV 0.125% 100 ML EPIDURAL SCH (19:15)
[2016-11-02] MEDS ORDERED: ePHEDrine/NS 25 MG/5 ML SYR IV PRN (19:15)
[2016-11-02] MEDS ORDERED: DO NOT ADMINISTER ANTICOAGULANTS PRN (19:15)
[2016-11-02] MEDS ORDERED: NO SYSTEM NARCOTICS PRN (19:15)
[2016-11-02 19:56] LABS: PLATELET ESTIMATE SMEAR NORMAL (NORMAL); PLATELET MORPHOLOGY GIANT (NORMAL); SCAN/DIFF AUTO DIFF CONFIRMED
[2016-11-02 20:04] LABS: BLOOD, URINE NEG (NEG); GLUCOSE,URINE NEG (NEG); KETONE, URINE NEG (NEG); NITRITE,URINE NEG (NEG); PH, URINE 7.5 (5.0-8.5); URINE COLOR LIGHT-YELLOW (YELLW/STRAW)
[2016-11-02 20:10] LABS: COMMENT (UR) CULT NOT INDICATED; CULTURE IF INDICATED CULT NOT INDICATED
--- NOTE | 2016-11-02 20:49 | PD.OB.DELI ---
Delivery Date: Nov 02, 2016 Anesthesia: Epidural Episiotomy: None Vaginal Delivery: Normal Presentation: Occiput anterior Nuchal Cord: None Delayed cord clamping (45 sec): Yes Infant: Male Weight: 3425 gm Placenta: Spontaneous delivery, Intact Laceration: No lacerations Nilson Reyes II, MD Nov 02, 2016 20:49
[2016-11-02] MEDS ORDERED: WITCH HAZEL 50%/GLYCERIN 12.5% 40 PAD JAR TOPICAL PRN (21:00)
[2016-11-02] MEDS ORDERED: SODIUM CHLORIDE 0.9% FLUSH 10 ML FLUSH IV FLUSH SCH (21:00)
[2016-11-02] MEDS ORDERED: ZOLPIDEM TARTRATE 5 MG TAB PO PRN (21:00)
[2016-11-02] MEDS ORDERED: oxyCODONE/ACETAMINOPHEN 5 MG/325 MG TAB PO PRN (21:00)
[2016-11-02] MEDS ORDERED: ONDANSETRON ODT 4 MG TAB PO PRN (21:00)
[2016-11-02] MEDS ORDERED: SODIUM CHLORIDE 0.9% FLUSH 10 ML FLUSH IV FLUSH PRN (21:00)
[2016-11-02] MEDS ORDERED: ACETAMINOPHEN 325 MG TAB PO PRN (21:00)
[2016-11-02] MEDS ORDERED: ALUMINUM/MAGNESIUM/SIMETH 30 ML CUP PO PRN (21:00)
[2016-11-02] MEDS ORDERED: BENZOCAINE 20% TOPICAL SPRAY 60 ML CAN TOPICAL PRN (21:00)
[2016-11-02] MEDS ORDERED: OXYTOCIN 30 UNITS-500ML PREMIX 500 ML IV SCH (21:00)
[2016-11-02] MEDS ORDERED: DOCUSATE SODIUM 50 MG/SENNA 8.6 MG TAB PO PRN (21:00)
[2016-11-02] MEDS ORDERED: METHYLERGONOVINE MALEATE 0.2 MG/ML VIAL ONE (23:17)
[2016-11-03] VITALS (7 sets, daily range): BP systolic 113–139; BP diastolic 71–93; PULSE 84–98; RESP 14–18; TEMP 98–99; O2SAT 100
--- NOTE | 2016-11-03 07:57 | HHI.OB ---
Subjective Post Day: 1 Remarks Patient is a 26-year-old delivered at 40 weeks and 6 days. Patient is day one after spontaneous vaginal delivery. Patient's pain is well- controlled. Patient reports bleeding has slowed down; as per nurse, patient continues to "trickle" blood with fundal massage. Mcghee catheter was reinserted with hemorrhage. Catheter continues to be in place. Patient has passed gas but has not had a bowel movement. Patient denies chest pain and shortness of breath. Patient has not been ambulating but denies lower extremity pain while supine. Objective Vitals/I&O Vital Signs Date Time Temp Pulse Resp B/P Pulse Ox O2 Delivery O2 Flow Rate FiO2 11/03/16 03:45 120/80 11/03/16 03:00 98 16 120/80 100 11/03/16 03:00 98.8 11/03/16 00:40 99.0 11/03/16 00:40 86 16 134/93 100 11/03/16 00:00 98.0 84 16 135/91 100 11/02/16 23:15 98.0 85 16 126/86 100 11/02/16 23:10 98.0 11/02/16 23:05 86 116/80 11/02/16 23:05 16 100 11/02/16 23:00 121/78 11/02/16 23:00 98.1 82 16 100 11/02/16 22:55 120/86 11/02/16 22:55 98.2 86 16 100 11/02/16 22:10 98.1 11/02/16 22:04 16 11/02/16 22:01 87 131/91 11/02/16 21:55 16 11/02/16 21:46 107 115/88 11/02/16 21:37 18 11/02/16 21:35 102/89 11/02/16 21:35 84 11/02/16 21:32 81/57 11/02/16 21:32 81 11/02/16 21:21 98.3 18 11/02/16 21:16 86 147/79 11/02/16 21:04 16 11/02/16 21:01 149 136/91 11/02/16 20:00 118 112/52 11/02/16 19:55 78 100 11/02/16 19:54 18 8/10/17 19:50 84 100 11/02/16 19:47 131/103 11/02/16 19:47 162 11/02/16 19:46 98 11/02/16 19:45 100 11/02/16 19:45 79 11/02/16 19:40 82 100 11/02/16 19:35 78 100 11/02/16 19:31 120 135/92 11/02/16 19:30 97.7 18 11/02/16 19:30 78 100 11/02/16 19:25 83 11/02/16 19:20 76 11/02/16 19:16 81 135/94 11/02/16 19:15 82 11/02/16 19:10 82 11/02/16 19:10 88 148/94 100 11/02/16 19:05 81 11/02/16 19:05 85 149/94 100 11/02/16 19:02 86 151/97 11/02/16 19:00 83 11/02/16 19:00 18 11/02/16 19:00 88 152/92 100 11/02/16 18:56 92 145/98 11/02/16 18:55 89 11/02/16 18:51 85 153/90 11/02/16 18:50 85 100 11/02/16 18:47 91 146/103 11/02/16 18:44 98.1 20 11/02/16 18:00 82 18 Objective Remarks GENERAL: Well-nourished, well-developed patient. CARDIOVASCULAR: Regular rate and rhythm without murmurs, gallops, or rubs. RESPIRATORY: Breath sounds equal bilaterally. No accessory muscle use. ABDOMEN/GI: Abdomen soft, non-tender. Fundus: Firm, non-tender at umbilicus. GENITOURINARY: Light to moderate bleeding. EXTREMITIES: No cyanosis or edema, non-tender, without signs of DVT. Medications and IVs Current Medications Medications (Trade) Dose Ordered Sig/Ariela Route Start Time Stop Time Status Last Admin Lactated Ringer's 1,000 ml @ 125 mls/hr Q8H IV 11/02/16 17:53 Lactated Ringer's 1,000 ml @ 3,000 mls/hr Q20M PRN IV 11/02/16 17:53 Sodium Chloride 500 ml @ 1,000 mls/hr ONCE PRN IV 11/02/16 18:00 11/09/16 17:59 (NS 1000 ml Inj) 1,000 ml @ 100 mls/hr Q10H PRN IV 11/02/16 18:13 (fentaNYL INJ) 50 mcg Q1H PRN IV PUSH 11/02/16 18:00 (fentaNYL INJ) 100 mcg Q1H PRN IV PUSH 11/02/16 18:00 (Muri-Lube Oil) 10 ml UNSCH PRN TOPICAL 11/02/16 18:00 Miscellaneous Information No systemic narcotics to be given except... UNSCH PRN .XX 11/02/16 19:15 11/03/16 19:14 Miscellaneous Information DO NOT ADMINISTER ANY ANTICOAGUL... UNSCH PRN .XX 11/02/16 19:15 11/03/16 19:14 (fentaNYL 2MCG-BUPIV 0.125% INJ) 100 ml @ 0 mls/hr TITRATE EPIDURAL 11/02/16 19:15 11/02/16 19:54 (ePHEDrine/NS 25 MG/5 ML SYR) 10 mg UNSCH PRN IV 11/02/16 19:15 11/03/16 19:14 (NS Flush) 2 ml BID IV FLUSH 11/02/16 21:00 (NS Flush) 2 ml UNSCH PRN IV FLUSH 11/02/16 21:00 (Tylenol) 650 mg Q4H PRN PO 11/02/16 21:00 (Motrin) 600 mg Q6H PRN PO 11/02/16 21:00 (Percocet 5-325 Mg) 1 tab Q4H PRN PO 11/02/16 21:00 (Americaine 20% Top Spr) 1 spray Q4H PRN TOPICAL 11/02/16 21:00 (Tucks Pads) 1 applic QID PRN TOPICAL 11/02/16 21:00 (Mariah-Colace) 2 tab Q12H PRN PO 11/02/16 21:00 (Ambien) 5 mg HS PRN PO 11/02/16 21:00 (Mag-Al Plus Susp Liq) 15 ml Q8H PRN PO 11/02/16 21:00 (Zofran Odt) 4 mg Q6H PRN PO 11/02/16 21:00 Assessment/Plan Assessment and Plan Patient is a 26-year-old delivered at 40 weeks and 6 days. Patient is day one after spontaneous vaginal delivery. * Continue routine care. * Motrin and Percocet when necessary for pain. * Methergine 0.2 mg q6hr PO. * CBC pending. * Encourage OOB today. * Pelvic rest for 6 weeks will need follow-up appointment at that time. * Anticipate discharge in 1-2 days. Diana Hassan MD R1 Nov 03, 2016 07:57
[2016-11-03] MEDS ORDERED: METHYLERGONOVINE MALEATE 0.2 MG TAB PO PRN (08:00)
[2016-11-03] MEDS: METHYLERGONOVINE MALEATE 0.2 MG TAB PO SCH ×2 (09:35→15:59)
[2016-11-03 13:00] LABS: HEMATOCRIT 25.5 % (35.0-46.0); MEAN CELL VOLUME 87.6 FL (80.0-100.0); MEAN CORPUSCULAR HEMOGLOBIN 30.1 PG (27.0-34.0); MEAN CORPUSCULAR HGB CONC 34.4 % (32.0-36.0); PLATELET COUNT 121 TH/MM3 (150-450); RED BLOOD COUNT 2.92 MIL/MM3 (4.00-5.30); RED CELL DISTRIBUTION WIDTH 13.5 % (11.6-17.2); REVIEW FLAG FINAL; WHITE BLOOD COUNT 12.7 TH/MM3 (4.0-11.0)
[2016-11-03] MEDS: IBUPROFEN 600 MG TAB PO PRN (17:55)
[2016-11-04] MEDS: METHYLERGONOVINE MALEATE 0.2 MG TAB PO SCH ×2 (04:06→12:02)
[2016-11-04 04:38] LABS: HEMATOCRIT 24.5 % (35.0-46.0); MEAN CORPUSCULAR HEMOGLOBIN 29.5 PG (27.0-34.0); MEAN CORPUSCULAR HGB CONC 33.5 % (32.0-36.0); PLATELET COUNT 119 TH/MM3 (150-450); RED BLOOD COUNT 2.79 MIL/MM3 (4.00-5.30); RED CELL DISTRIBUTION WIDTH 13.6 % (11.6-17.2); REVIEW FLAG FINAL; WHITE BLOOD COUNT 11.8 TH/MM3 (4.0-11.0)
[2016-11-04] MEDS: IBUPROFEN 600 MG TAB PO PRN (04:54)
[2016-11-04 07:45] VITALS: BP 125/86; PULSE 76; RESP 18; TEMP 97.8; O2SAT 97
--- NOTE | 2016-11-04 08:27 | HHI.OB ---
Subjective Post Day: 2 Remarks Patient is a 26-year-old delivered at 40 weeks and 6 days. Patient is day 2 after . Patient's pain is well-controlled. Patient reports eating and drinking without any nausea or vomiting. Patient reports minimal bleeding. Patient has passed gas and bowel movements. Patient is walking without lower extremity pain or shortness of breath or chest pain. Patient denies any feelings of depression. Patient reports desire for contraception on an outpatient basis and both bottle- and breast-feeding. (Johann Jrarell MD R2 ) Objective Vitals/I&O Vital Signs Date Time Temp Pulse Resp B/P Pulse Ox O2 Delivery O2 Flow Rate FiO2 11/03/16 19:45 99.0 11/03/16 19:45 84 18 113/71 11/03/16 14:32 98.6 94 14 129/92 11/03/16 09:40 98.2 11/03/16 09:40 93 18 139/85 Objective Remarks GENERAL: Well-nourished, well-developed patient. CARDIOVASCULAR: Regular rate and rhythm without murmurs, gallops, or rubs. RESPIRATORY: Breath sounds equal bilaterally. No accessory muscle use. ABDOMEN/GI: Abdomen soft, non-tender. Fundus: Firm, non-tender at umbilicus. GENITOURINARY: Light bleeding. EXTREMITIES: No cyanosis or edema, non-tender, without signs of DVT. Medications and IVs Current Medications Medications (Trade) Dose Ordered Sig/Ariela Route Start Time Stop Time Status Last Admin Lactated Ringer's 1,000 ml @ 125 mls/hr Q8H IV 11/02/16 17:53 Lactated Ringer's 1,000 ml @ 3,000 mls/hr Q20M PRN IV 11/02/16 17:53 Sodium Chloride 500 ml @ 1,000 mls/hr ONCE PRN IV 11/02/16 18:00 11/09/16 17:59 (NS 1000 ml Inj) 1,000 ml @ 100 mls/hr Q10H PRN IV 11/02/16 18:13 (fentaNYL INJ) 50 mcg Q1H PRN IV PUSH 11/02/16 18:00 (fentaNYL INJ) 100 mcg Q1H PRN IV PUSH 11/02/16 18:00 Mineral Oil 10 ml 10 ml UNSCH PRN TOPICAL 11/02/16 18:00 (fentaNYL 2MCG-BUPIV 0.125% INJ) 100 ml @ 0 mls/hr TITRATE EPIDURAL 11/02/16 19:15 11/02/16 19:54 (NS Flush) 2 ml BID IV FLUSH 11/02/16 21:00 (NS Flush) 2 ml UNSCH PRN IV FLUSH 11/02/16 21:00 (Tylenol) 650 mg Q4H PRN PO 11/02/16 21:00 (Motrin) 600 mg Q6H PRN PO 11/02/16 21:00 11/04/16 04:54 (Percocet 5-325 Mg) 1 tab Q4H PRN PO 11/02/16 21:00 (Americaine 20% Top Spr) 1 spray Q4H PRN TOPICAL 11/02/16 21:00 (Tucks Pads) 1 applic QID PRN TOPICAL 11/02/16 21:00 (Mariah-Colace) 2 tab Q12H PRN PO 11/02/16 21:00 (Ambien) 5 mg HS PRN PO 11/02/16 21:00 (Mag-Al Plus Susp Liq) 15 ml Q8H PRN PO 11/02/16 21:00 (Zofran Odt) 4 mg Q6H PRN PO 11/02/16 21:00 (Methergine) 0.2 mg Q6H PO 11/03/16 22:00 11/04/16 10:00 11/04/16 04:06 (Johann Jarrell MD R2) Assessment/Plan Problem List: (1) (spontaneous vaginal delivery) Assessment and Plan Patient is a 26-year-old delivered at 40 weeks and 6 days. Patient is day 2 after spontaneous vaginal delivery. Patient was counseled to do 6 weeks of pelvic rest. Patient was counseled to follow up in 6 weeks. Patient requested follow-up and contraception. --AF VSS --Continue routine care --Motrin and Percocet when necessary for pain --Encourage OOB --Pelvic rest for 6 weeks will need follow-up appointment at that time. --Contraception: Patient will arrange contraception with her outpatient doctor --Patient reports scant vaginal bleeding after Methergine 0.2 mg q6hr PO. --Hgb trended: 11.7, 8.8, 8.2 --Pt OOB today. --Anticipate discharge in today d/w Dr. Love (Johann Jarrell MD R2) Attending Attestation Case discussed and reviewed (Woody Love MD) Johann Jarrell MD R2 Nov 04, 2016 08:27 Woody Love MD Nov 04, 2016 08:40
[2016-11-04] MEDS ORDERED: IBUP-232 PO (08:30)
--- NOTE | 2016-11-04 08:31 | HHI.DCPOC ---
Discharge Care Plan Diagnosis: (1) (spontaneous vaginal delivery) Report Symptoms to Your Doctor -Temperature above 100.5 degrees -Redness, of incision or excessive or foul smelling drainage -Unusual pain or calf pain -Increased vaginal bleeding -Painful or difficulty urinating -Feelings of extreme sadness or anxiety after 2 weeks Goals to Promote Your Health * To prevent worsening of your condition and complications, please follow-up with your doctor. * To maintain your health at the optimal level, please follow your doctor's instructions. Directions to Meet Your Goals Take your medications as prescribed Follow your dietary instruction Follow activity as directed Ensure plenty of rest for recovery Drink fluids for hydration Keep your appointments as scheduled Take your immunizations and boosters as scheduled If your symptoms worsen call your PCP, if no PCP go to Urgent Care Center or Emergency Room Smoking is Dangerous to Your Health. Avoid second hand smoke Call the 24-hour crisis hotline for domestic abuse at Johann Jarrell MD R2 Nov 04, 2016 08:31
== END 2016-11-04 13:50 | disposition home or self-care (01) | DRG 774 ==
LOC: HOBED 17:17 → H2EB 17:42 → H1EA 22:34
PROVIDERS: ADMIT Obstetrics & Gynecology Maternal & Fetal Medicine; ATTEND Obstetrics & Gynecology Maternal & Fetal Medicine
PROC: 10E0XZZ Delivery of Products of Conception, External Approach (ICD-10-PCS; principal; 2016-11-02)
PROC: 0T9B70Z Drainage of Bladder with Drainage Device, Via Natural or Artificial Opening (ICD-10-PCS; 2016-11-02)
DX: O48.0 Post-term pregnancy (principal); O72.1 Other immediate postpartum hemorrhage; Z37.0 Single live birth; Z3A.40 40 weeks gestation of pregnancy
CPT/HCPCS: 59025; 81001; 85025; 85027; 86900; 86901; 90715; J2210